=== PATIENT | male | born 1985 ===

== ENCOUNTER 2021-01-07 08:00 | Emergency (ER) | payer SELFPAY ==
[2021-01-07] MEDS ORDERED: Sodium Chloride 0.9% 10 ML Syringe FLUSH PRN (08:28)
--- NOTE | 2021-01-07 08:28 | EDM.PDOC ---
ED HPI GENERAL MEDICAL PROBLEM - General Chief Complaint: Skin Complaint Stated Complaint: AMBULANCE Time Seen by Provider: 01/07/21 08:28 Source of Information: Reports: Patient, RN, RN Notes Reviewed History Limitations: Reports: No Limitations - History of Present Illness INITIAL COMMENTS - FREE TEXT/NARRATIVE: Pt presents to ER by ambulance with c/o left thumb infection and a red streak that runs from the thumb to the left arm pit. Pt states he cut his left thumb last week, he then developed swelling around the nail with redness, and pain. He now has streaking red up left forearm and pain up to the elbow. Denies fever or chills, nausea or vomiting. 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 Onset: Gradual Duration: Constant, Getting Worse Location: Reports: Upper Extremity, Left Quality: Reports: Ache Severity: Severe Improves with: Reports: None Worsens with: Reports: None Associated Symptoms: Reports: No Other Symptoms Arm Pain Score (Numeric/FACES): 8 - Related Data Allergies Allergy/AdvReac Type Severity Reaction Status Date / Time aspirin Allergy Cannot Verified 01/07/21 08:19 Remember Home Meds: Home Meds . [No Known Home Meds] 01/07/21 [History] Past Medical History - Infectious Disease History Infectious Disease History: Reports: MRSA Social & Family History - Family History Family Medical History: No Pertinent Family History - Living Situation & Occupation Living situation: Reports: with Family ED ROS GENERAL - Review of Systems Review Of Systems: Comprehensive ROS is negative, except as noted in HPI. ED EXAM, SKIN/RASH Exam: See Below Exam Limited By: No Limitations General Appearance: Alert, WD/WN, No Apparent Distress Eye Exam: Bilateral Eye: Normal Inspection Throat/Mouth: Normal Lips, Normal Voice, No Airway Compromise Head: Atraumatic, Normocephalic Neck: Normal Inspection Respiratory/Chest: No Respiratory Distress, Lungs Clear, Normal Breath Sounds, No Accessory Muscle Use, Chest Non-Tender Cardiovascular: Normal Peripheral Pulses Peripheral Pulses: 3+: Radial (L), Radial (R) Extremities: Normal Range of Motion, Normal Capillary Refill, Arm Pain (Left thumb with ale-cuticle swelling and fluctuance consistent with paronychia, with a 1cm wide band of erythema running procimally across the dorsal hand and up the arm to the axilla.). No: Joint Swelling Neurological: Alert, Oriented, No Motor/Sensory Deficits Psychiatric: Normal Mood Course - Vital Signs Last Recorded V/S: Last Vital Signs Temp 98.2 F 01/07/21 08:28 Pulse 99 01/07/21 08:28 Resp 16 01/07/21 08:28 BP 147/87 H 01/07/21 08:28 Pulse Ox 99 01/07/21 08:28 - Orders/Labs/Meds Orders: Active Orders 24 hr Category Date Time Status Peripheral IV Care [RC] . DIRECTED Care 01/07/21 08:29 Active Vaccines to be Administered [RC] PER UNIT ROUTINE Care 01/07/21 08:33 Active CULTURE BLOOD [BC] Stat Lab 01/07/21 08:39 Received CULTURE BLOOD [BC] Stat Lab 01/07/21 08:46 Received Sodium Chloride 0.9% [Saline Flush] Med 01/07/21 08:28 Active 10 ml FLUSH ASDIRECTED PRN Vancomycin 1 gm Med 01/07/21 08:29 Active Sodium Chloride 0.9% [Normal Saline (AdvBag)] 250 ml IV ONETIME Blood Culture x2 Reflex Set [OM.PC] Stat Oth 01/07/21 08:28 Ordered Peripheral IV Insertion Adult [OM.PC] Stat Oth 01/07/21 08:29 Ordered Labs: Laboratory Tests 01/07/21 01/07/21 01/07/21 Range/Units 08:39 08:39 08:39 WBC 10.0 (5.0-10.0) 10^3/uL RBC 4.97 (4.6-6.2) 10^6/uL Hgb 15.1 (14.0-18.0) g/dL Hct 43.2 (40.0-54.0) % MCV 86.9 (80-100) fL MCH 30.4 (27.0-34.0) pg MCHC 35.0 (33.0-35.0) g/dL Plt Count 250 (150-450) 10^3/uL Neut % (Auto) 70.4 (42.2-75.2) % Lymph % (Auto) 17.8 L (20.5-50.1) % Hickman % (Auto) 10.3 H (2-8) % Eos % (Auto) 1.3 (1.0-3.0) % Baso % (Auto) 0.2 (0.0-1.0) % Sodium 143 (136-145) mmol/L Potassium 3.5 (3.5-5.1) mmol/L Chloride 106 (98-107) mmol/L Carbon Dioxide 28 (21-32) mmol/L Anion Gap 12.5 (7-13) mEq/L BUN 10 (7-18) mg/dL Creatinine 0.93 (0.70-1.30) mg/dL Est Cr Clr Drug Dosing TNP Estimated GFR (MDRD) > 60 BUN/Creatinine Ratio 10.8 (No establ ref range) Glucose 116 H (74-99) mg/dL Lactic Acid 1.4 (0.4-2.0) mmol/L Calcium 7.8 L (8.5-10.1) mg/dL Total Bilirubin 0.3 (0.2-1.0) mg/dL AST 65 H (15-37) U/L ALT 180 H (16-63) U/L Alkaline Phosphatase 85 (46-116) U/L C-Reactive Protein < 0.2 (0.0-0.9) mg/dL Total Protein 7.0 (6.4-8.2) g/dL Albumin 3.0 L (3.4-5.0) g/dL Globulin 4.0 Albumin/Globulin Ratio 0.75 - Re-Assessments/Exams Free Text/Narrative Re-Assessment/Exam: 01/07/21 09:54 Culture of drainage from left thumb obtained and sent to lab. Departure - Departure Time of Disposition: 09:54 Disposition: Home, Self-Care 01 Condition: Good Clinical Impression: Paronychia of thumb, left, Cellulitis of left upper extremity - Discharge Information *PRESCRIPTION DRUG MONITORING PROGRAM REVIEWED*: Not Applicable *COPY OF PRESCRIPTION DRUG MONITORING REPORT IN PATIENT ARIEL: Not Applicable Instructions: Paronychia, [id number], Cellulitis, Adult Forms: ED Department Discharge Additional Instructions: Rx: Clindamycin 300mg Rx: Bactrim DS Follow up in clinic if not improving in 2 days. Return to ER if worse at any time. Sepsis Event Note (ED) - Focused Exam Vital Signs: Vital Signs Temp Pulse Resp BP Pulse Ox 01/07/21 08:28 98.2 F 99 16 147/87 H 99 - My Orders Last 24 Hours: My Active Orders 01/07/21 08:28 Sodium Chloride 0.9% [Saline Flush] 10 ml FLUSH ASDIRECTED PRN Blood Culture x2 Reflex Set [OM.PC] Stat 01/07/21 08:29 Peripheral IV Care [RC] . DIRECTED Vancomycin 1 gm Sodium Chloride 0.9% [Normal Saline (AdvBag)] 250 ml IV ONETIME Peripheral IV Insertion Adult [OM.PC] Stat 01/07/21 08:33 Vaccines to be Administered [RC] PER UNIT ROUTINE 01/07/21 08:39 CULTURE BLOOD [BC] Stat 01/07/21 08:46 CULTURE BLOOD [BC] Stat - Assessment/Plan Last 24 Hours: My Active Orders 01/07/21 08:28 Sodium Chloride 0.9% [Saline Flush] 10 ml FLUSH ASDIRECTED PRN Blood Culture x2 Reflex Set [OM.PC] Stat 01/07/21 08:29 Peripheral IV Care [RC] . DIRECTED Vancomycin 1 gm Sodium Chloride 0.9% [Normal Saline (AdvBag)] 250 ml IV ONETIME Peripheral IV Insertion Adult [OM.PC] Stat 01/07/21 08:33 Vaccines to be Administered [RC] PER UNIT ROUTINE 01/07/21 08:39 CULTURE BLOOD [BC] Stat 01/07/21 08:46 CULTURE BLOOD [BC] Stat
[2021-01-07] MEDS ORDERED: Sodium Chloride 0.9% 1,000 ML IV ONE (08:29)
[2021-01-07] MEDS ORDERED: diphenhydrAMINE 50 MG/ML SDV IVPUSH ONE (08:29)
[2021-01-07] MEDS ORDERED: Diphtheria,Pertussis(Acell),Tetanus Vaccine 0.5 ML Syringe IM ONE (08:33)
[2021-01-07 09:12] LABS: ANION GAP 12.5 mEq/L (7-13); CHLORIDE,CL 106 mmol/L (98-107); SODIUM,NA 143 mmol/L (136-145)
== END 2021-01-07 10:53 | disposition home or self-care (01) ==
LOC: DL.ED 08:00
DX: L03.012 Cellulitis of left finger (principal); Z23 Encounter for immunization; Z88.8 Allergy status to other drugs, medicaments and biological substances
CPT/HCPCS: 36415; 80053; 83605; 85025; 86140; 87040; 90471; 90715; 96365; 96375; 99282; 99284; J1200; J3370; J7030; J7050